=== PATIENT | male | born 1950 | race Caucasian/White ===

== ENCOUNTER 2018-11-12 10:25 | Day surgery (SDC) | payer OTHER ==
[2018-11-08 11:08] VITALS: BMI 23.1
[~2018-11-12 10:25] MED LIST: LACTATED RINGERS 1,000 ML IV SCH; LIDOCAINE 1% 20 ML VIAL (10MG/ML) FOR IV START INTRADERMA PRN
[2018-11-12 10:44] VITALS: RESP 16; TEMP 96.7
[2018-11-12] MEDS ORDERED: PROPOFOL 10 MG/ML 20 ML VIAL IV ONE (12:00)
--- NOTE | 2018-11-12 12:49 | P.PCN ---
Date of Procedure: 11/12/18 Procedure(s) Performed: Procedure: Total colonoscopy. Preoperative diagnosis: Screening for neoplasia. Postoperative diagnosis: Exam within normal limits. Preparation: HalfLytely prep. Sedation: Was provided by anesthesia. Brief clinical history: The patient is a 68-year-old male who is scheduled for t his evaluation for screening for neoplasia. The patient had prior colonoscopies and had polyps removed in the past. At this time, he has no abdominal complaints, bleeding or anemia. Procedure: With the patient on his left lateral decubitus position and after informed consent and adequate sedation, the perianal area was inspected and it did not show any fissures or fistulas. There were no masses felt on digital rectal examination. The Olympus CFH 190 L video colonoscope was then inserted in the rectum in the usual fashion and advanced to the cecum. Unfortunately, the preparation was less than ideal on the right side and cecum. There was no obvious large polyps or tumors. Where visualized, the mucosa appeared healthy. There was no obvious diverticular disease or other pathology. I retroflexed the endoscope in the rectum before the endoscope was withdrawn. Low-grade internal hemorrhoids were noted with no evidence of spontaneous bleeding. The patient tolerated the procedure well. Plan: The patient was reassured. Discussed dietary measures and local care for hemorrhoids. Consideration can be given for repeat endoscopy in 3-5 years. He will F/U with you.
[2018-11-12 12:54] VITALS: BP 116/78; PULSE 60
== END 2018-11-12 13:36 | disposition home or self-care (01) ==
LOC: ORWHC2ENDO 10:25
DX: Z12.11 Encounter for screening for malignant neoplasm of colon (principal); K64.8 Other hemorrhoids; Z86.010 Personal history of colon polyps; I10 Essential (primary) hypertension; E78.5 Hyperlipidemia, unspecified; F17.210 Nicotine dependence, cigarettes, uncomplicated; Z79.899 Other long term (current) drug therapy
CPT/HCPCS: J2704; G0105; 45378

== ENCOUNTER → 2022-06-01 | Outpatient (CLI) | payer OTHER ==
--- NOTE | 2022-06-01 14:35 | CTL ---
EXAMINATION TYPE: CT Low Dose Lung DATE OF EXAM ORDERED: 06/01/2022 HISTORY: 72-year-old male Z87.891 PERS HX TOBACCO USE. Current smoker with 30 pack-year history. [place] g cancer screening CT DLP: [address] CTDI: 1.95 mGy Automated exposure control for dose reduction was used. SCREENING VISIT: Baseline COMPARISON: None TECHNIQUE: Low dose computed tomography scan was performed through the chest with coronal and sagitta l reconstructions. CT DIAGNOSTIC QUALITY: Satisfactory FINDINGS: Heart normal size without pericardial effusion. Borderline ectasia upper descending thoracic aorta 3.1 cm. Minimal atherosclerotic arch calcification s. Conventional arch vessel branching anatomy. No thoracic lymphadenopathy by CT size criteria. Borderline caliber to the main right and left pulmonary arteries measuring up to 2.5 cm. Minimal biapical pleural parenchymal scarring. Some strandy mucoid debris within the mid and lower tr achea and bilateral mainstem bronchi. Mild diffuse bronchial wall thickening. Some strandy scarring o r atelectasis in the lower lungs. No consolidation or pleural effusion. No suspicious pulmonary nodul e is seen. Partially visualized 8mm high density cortical lesion lateral left kidney, likely a tiny hemorrhagic cyst otherwise, upper upper abdomen shows no gross abnormality. 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 IMPRESSION: 1. LungRADS 1, negative. No suspicious pulmonary nodules. Recommend smoking cessation. 2. Some strandy mucoid debris in the mid and lower trachea and bilateral mainstem bronchi. Mild bronc hial wall thickening can be seen with bronchitis or asthma. CT LUNG RAD AND CT CHEST RECOMMENDATION: Lung-Rad 1 Negative: Continue annual screening with LDCT in 12 months. S Modifier (other clinically significant findings): None
== END | disposition home or self-care (01) ==
LOC: RADCTMAIN 11:41
DX: Z12.2 Encounter for screening for malignant neoplasm of respiratory organs (principal); J98.09 Other diseases of bronchus, not elsewhere classified; F17.210 Nicotine dependence, cigarettes, uncomplicated
CPT/HCPCS: 71271

== ENCOUNTER → 2023-11-16 | Outpatient (CLI) | payer OTHER ==
--- NOTE | 2023-11-16 17:57 | US ---
EXAMINATION TYPE: US Aorta Screening DATE OF EXAM: 11/16/2023 COMPARISON: NONE CLINICAL INDICATION: Male, 73 years old with history of Z72.0 TOBACCO USE; Current smoker. Weight lo ss. TECHNIQUE: Multiple sonographic images of the abdominal aorta are obtained. FINDINGS: EXAM MEASUREMENTS: Abdominal Aorta: Proximal: 1.9 x 2.3 cm Mid: 1.9 x 1.9 cm Distal: 1.8 x 1.8 cm Bifurcation: Right Iliac: 1.3 x 1.1 cm Left Iliac: 1.1 x 1.2 cm [employer]NAGER [employer] NOTES: No AAA visualized at time of scan IMPRESSION: Mild scattered atheromatous calcification of the aorta and iliac vessels but no aneurysmal dilatation or stenosis.
== END | disposition home or self-care (01) ==
LOC: RADUSWWP 08:34
PROVIDERS: ATTEND Family Medicine
DX: Z13.6 Encounter for screening for cardiovascular disorders (principal); I70.0 Atherosclerosis of aorta; R63.4 Abnormal weight loss; Z72.0 Tobacco use
CPT/HCPCS: 76706

== ENCOUNTER → 2024-06-03 | Outpatient (CLI) | payer OTHER ==
--- NOTE | 2024-06-03 13:13 | CTL ---
EXAMINATION TYPE: CT Low Dose Lung DATE OF EXAM ORDERED: 06/03/2024 COMPARISON: CT Low Dose Lung 06/01/2022 CLINICAL INDICATION: Male, 74 years old with history of F17.210 nicotine dependence; PHH, tobacco use x30 years 1ppd, Lung cancer screening, History of Smoking/tobacco use. TECHNIQUE: Low dose computed tomography scan was performed through the chest at 1 mm thick sections a nd reconstructed images in multiple planes at 1 mm and [address] DLP: 77.[address] CTDI: 2.0 mGy Automated exposure control for dose reduction was used. CT DIAGNOSTIC QUALITY: Satisfactory FINDINGS: Nodules: No clinically significant pulmonary nodules. 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 Supraclavicular region: None Other: None IMPRESSION: No clinically significant pulmonary nodules. CT LUNG RAD AND CT CHEST RECOMMENDATION: Lung-Rad 1 Negative: Continue annual screening with LDCT in 12 months. S Modifier (other clinically significant findings): None [facility], , 06/03/2024 1:10 PM
== END | disposition home or self-care (01) ==
LOC: RADCTMAIN 12:23
PROVIDERS: ATTEND Family Medicine
DX: Z12.2 Encounter for screening for malignant neoplasm of respiratory organs (principal); F17.210 Nicotine dependence, cigarettes, uncomplicated
CPT/HCPCS: 71271